=== PATIENT | male | born 1965 | race Caucasian/White ===

== ENCOUNTER → 2019-12-02 | Outpatient (CLI) | payer OTHER ==
--- NOTE | 2019-12-02 12:42 | DIREP ---
PROCEDURE:MRI SPINE LUMBAR W/O COMPARISON:None. INDICATIONS:DDD, LUMBAR RADICULOPATHY TECHNIQUE:A comprehensive examination was performed utilizing a variety of imaging planes and imaging parameters to optimize visualization of suspected pathology. Images were performed without intravenous gadolinium contrast. FINDINGS: ALIGNMENT:Loss of lumbar lordosis. Minimal retrolisthesis of L3 on L4 and L4 on L5 by few mm. On the coronal images, there is a gentle dextroscoliosis of the lumbar spine. VERTEBRA:There are vertebral endplate changes at L3-4 and L4-5. Recommend a follow-up contrast-enhanced study to rule out early changes of discitis. No pathological replaced of marrow or acute compression fractures are seen. Prominent disc bulges at L3-4, L4-5 and to a lesser extent at L5-S1. CORD/CAUDA EQUINA:Normal size, contour, and signal intensity. PARASPINAL AREA:Normal with no visible mass. OTHER:None. LUMBAR DISC LEVELS T12-L1:No focal disc. No foraminal or central stenosis. Mild to moderate facet and ligamenta flava hypertrophy noted. L1-L2:No focal disc. No foraminal or central stenosis. Moderate facet and ligamenta flava hypertrophy noted. L2-L3:Minimal bulge. No focal disc. No foraminal or central stenosis. Mild to moderate facet and ligamenta flava hypertrophy noted. L3-L4:Moderate disc bulge. A small right paracentral protrusion cannot be excluded as seen on transaxial image number 11 and sagittal image 9. Narrowing of neural foramen and severe narrowing of lateral recesses with mild to moderate central stenosis. Moderate facet and ligamenta flava hypertrophy noted with free fluid in the facets. L4-L5:Generalized disc bulge with narrowing of neural foramen and lateral recesses. Mild to moderate central stenosis. No focal disc is seen. Mild to moderate facet and ligamenta flava hypertrophy noted. L5-S1:A tiny central protrusion cannot be excluded. No foraminal or central stenosis. CONCLUSION:Vertebral endplate changes at L3-4 and L4-5. Early changes of discitis cannot be excluded. Recommend a follow-up contrast-enhanced study. Moderate disc bulge at L3-4 and L4-5 and to a lesser extent at L5-S1. A small right paracentral protrusion cannot be excluded at L 3 4, to the right of midline. No acute compression fractures are seen. Central stenosis at L3-4 and L4-5 as described above. Facet disease throughout the lumbar spine. Dictated by: Lebron Horvath MD on 12/02/2019 at 12:25 PM
== END | disposition home or self-care (01) ==
LOC: RAD 11:15
PROVIDERS: ATTEND Physician Assistant
DX: M54.16 Radiculopathy, lumbar region (principal)
CPT/HCPCS: 72148